=== PATIENT | female | born 1995 | race African-American/Black ===

== ENCOUNTER → 2018-11-16 | Outpatient (CLI) | payer BC | LOC: FIMAGING 13:31 | PROVIDERS: ATTEND Obstetrics & Gynecology | DX: Z34.91 Encounter for supervision of normal pregnancy, unspecified, first trimester (principal); Z3A.12 12 weeks gestation of pregnancy ==

== ENCOUNTER → 2019-01-24 | Outpatient (CLI) | payer BC | LOC: FIMAGING 11:25 | PROVIDERS: ATTEND Obstetrics & Gynecology | DX: O26.612 Liver and biliary tract disorders in pregnancy, second trimester (principal); Z3A.22 22 weeks gestation of pregnancy ==

== ENCOUNTER → 2019-01-31 | Outpatient (CLI) | payer BC | LOC: FIMAGING 11:07 | PROVIDERS: ATTEND Obstetrics & Gynecology | DX: Z34.02 Encounter for supervision of normal first pregnancy, second trimester (principal); Z3A.23 23 weeks gestation of pregnancy ==

== ENCOUNTER → 2019-03-22 | Outpatient (CLI) | payer BC | LOC: FIMAGING 13:22 | PROVIDERS: ATTEND Obstetrics & Gynecology | DX: O24.419 Gestational diabetes mellitus in pregnancy, unspecified control (principal); Z3A.30 30 weeks gestation of pregnancy ==

== ENCOUNTER → 2019-04-19 | Outpatient (CLI) | payer BC | LOC: FIMAGING 12:50 ==